=== PATIENT | male | born 1955 | race Caucasian/White ===

== ENCOUNTER 2019-01-20 08:24 | Day surgery (SDC) | payer MEDICARE ==
[~2019-01-20 08:24] MED LIST: AUGMENTIN875TAB PO; FLOMAX0.4 M1 OR; FUROSEMIDE20 MG PO; LISINOP/HCTZ1 TA1 PO; LORTAB 7.5 OR; METFORMIN500 MG PO; NAPROSYN500 MG PO; OMEPRAZOLE20 MG PO; PRAVACHOL80 MG PO; PRAVASTATIN40 MG PO; RESTORIL15 M1 OR; SYMBICORT1 AE1; TRAMADOL HCL50 MG OR; VICODIN HP1 TAB OR
[2019-01-20 12:49] VITALS: BP 138/82
== END 2019-01-20 11:10 | disposition home or self-care (01) ==
LOC: ENDO 08:24 → ORM 08:45 → ENDO 08:45
PROVIDERS: ATTEND Surgery
PROC: 0DB78ZX Excision of Stomach, Pylorus, Via Natural or Artificial Opening Endoscopic, Diagnostic (ICD-10-PCS; principal; 2019-01-20)
PROC: 0DJD8ZZ Inspection of Lower Intestinal Tract, Via Natural or Artificial Opening Endoscopic (ICD-10-PCS; 2019-01-20)
DX: K29.70 Gastritis, unspecified, without bleeding (principal); B96.81 Helicobacter pylori [H. pylori] as the cause of diseases classified elsewhere; K58.1 Irritable bowel syndrome with constipation; I10 Essential (primary) hypertension; K21.9 Gastro-esophageal reflux disease without esophagitis; E11.9 Type 2 diabetes mellitus without complications; F17.290 Nicotine dependence, other tobacco product, uncomplicated

== ENCOUNTER 2021-01-12 19:54 | Emergency (ER) | payer MEDICARE ==
[2021-01-12] MEDS ORDERED: KEFLEX500 MG PO (20:54)
[2021-01-12 21:11] VITALS: BP 165/85
== END 2021-01-12 21:05 | disposition home or self-care (01) ==
LOC: ED 19:54
PROC: 0HQLXZZ Repair Left Lower Leg Skin, External Approach (ICD-10-PCS; principal; 2021-01-12)
DX: S81.812A Laceration without foreign body, left lower leg, initial encounter (principal); S40.812A Abrasion of left upper arm, initial encounter; S30.810A Abrasion of lower back and pelvis, initial encounter; S20.412A Abrasion of left back wall of thorax, initial encounter; I10 Essential (primary) hypertension; V86.55XA Driver of 3- or 4- wheeled all-terrain vehicle (ATV) injured in nontraffic accident, initial encounter; Y92.73 Farm field as the place of occurrence of the external cause

== ENCOUNTER 2023-05-17 16:25 | Emergency (ER) | payer MEDICARE ==
[2023-05-17] VITALS (10 sets, daily range): BP systolic 150–191; BP diastolic 84–123
[~2023-05-17] VITALS: Ht 175.3 cm; Wt 103.0 kg
[~2023-05-17 16:25] MED LIST changes: +KEFLEX500 MG PO
[2023-05-17] MEDS ORDERED: OMEPRAZOLE DR40 MG (16:50)
[2023-05-17] MEDS ORDERED: FUROSEMIDE20 MG PO (16:51)
[2023-05-17] MEDS ORDERED: LISINOPRIL20 M1 PO (16:55)
[2023-05-17 17:11] LABS: BASO% 1.2 % (0-3); HEMATOCRIT 44.3 % (39.0-50.0); IMMATURE GRANULOCYTES 0.5 % (0.0-5.0); LYMPH% 22.7 % (15-41); MEAN CORPUSCULAR HGB 30.5 pG CALC (26.0-32.0); MEAN CORPUSCULAR HGB CONC 33.9 g/dL CAL (32.0-36.0); NEUT# 4.93 thou/uL (1.82-7.42); NEUT% 66.6 % (42-76); RED BLOOD COUNT 4.92 mill/uL (4.70-6.10); RED CELL DISTRI WIDTH 13.6 % (11.5-15.5)
[2023-05-17 17:24] LABS: ALBUMIN 4.2 g/dL (3.2-5.0); ALKALINE PHOSPHATASE 145 u/l (38-126); ANION GAP 14 (6-22 (CALC)); BILIRUBIN, TOTAL 0.6 mg/dL (0.2-1.3); BUN 20 mg/dL (8-23); BUN/CREATININE RATIO 23 (12-20 (CALC)); CARBON DIOXIDE 23 mmol/l (22-30); CHLORIDE 105 mmol/l (95-108); CREATININE 0.9 mg/dL (0.7-1.3); GFR FOR AFR.AMER. > 60 ML/MIN (>=60 (CALC)); GFR OTHER RACES > 60 ML/MIN (>=60 (CALC)); SGOT/AST 38 u/l (19-48); SODIUM 138 mmol/l (137-146); TOTAL PROTEIN 7.4 g/dL (6.3-8.2)
[2023-05-17] MEDS ORDERED: CLONIDINE0.1 MG PO (18:33)
== END 2023-05-17 18:34 | disposition home or self-care (01) ==
LOC: ED 16:25
PROVIDERS: Nurse Practitioner Family
DX: I10 Essential (primary) hypertension (principal); T46.4X6A Underdosing of angiotensin-converting-enzyme inhibitors, initial encounter; Z91.128 Patient's intentional underdosing of medication regimen for other reason